=== PATIENT | female | born 1990 | race Caucasian/White ===

== ENCOUNTER 2020-02-28 00:36 | Inpatient (IN) ==
[2020-02-28] MEDS ORDERED: LACTATED RINGERS 1,000 ML IV STA (00:59)
[2020-02-28] MEDS ORDERED: DIPHTHERIA/TETANUS ADULT VACCINE 0.5 ML SYRINGE IM ONE (00:59)
[2020-02-28 01:55] LABS: Basophils % 0.1 % (0.0-0.8); Eosinophils % 0.1 % (0.00-10.9); Hematocrit 39.8 VOL% (35.7-47.0); Hemoglobin 13.9 GM/DL (12.0-16.0); Immature Granulocytes % 0.4 %; Immature Granulocytes Absolute 0.05 #; Lymphocytes # 0.7 10*3/uL (1.4-4.0); Lymphocytes % 5.1 % (21.3-54.2); Mean Corpuscular HGB Conc 34.9 GM/DL (32-36); Mean Platelet Volume 11.5 FL (9.6-12.0); Monocytes % 7.5 % (1.7-12.7); Neutrophils % 86.8 % (38.7-73.9); Platelet Count 102 T/CUMM (130-400); Red Blood Count 3.98 MC/CUMM (3.8-5.5); White Blood Count 13.6 T/CUMM (4-12)
[2020-02-28] MEDS ORDERED: MORPHINE 4 MG/1 ML VIAL IV STA (02:00)
[2020-02-28] MEDS ORDERED: ONDANSETRON 4 MG/2 ML VIAL IV STA (02:00)
[2020-02-28 02:09] LABS: Apearance,Urine CLEAR (Clear); Bacteria,Urine Occasional /HPF (Few); Bilirubin,Urine Negative (Negative); Blood, Urine Moderate mg/dL (Negative); Glucose,Urine (UA) Negative (Negative); Ketones,Urine Negative (Negative); Nitrite,Urine Negative (Negative); Protein,Urine Negative; Squamous Epithelial Cell,Urine Occasional /HPF (0-10); Urine Color Straw (Yellow); Urine Specific Gravity 1.003 (1.001-1.035); Urine Urobilinogen < 2.0 EU/DL (0.2-1.0); WBC,Urine 1 /HPF (0-6)
[2020-02-28] MEDS ORDERED: cefTRIAXone 1,000 MG in SODIUM CHLORIDE 0.9% 100 ML IV STA (02:24)
[2020-02-28 02:33] LABS: Alanine Aminotransferase 65 U/L (13-56); Albumin 3.7 G/DL (3.4-5.0); Alkaline Phosphatase 59 U/L (45-117); Aspartate Amino Transferase 53 U/L (0-37); Bilirubin,Total < 0.39 MG/DL (0.2-1.0); Blood Urea Nitrogen 9 MG/DL (7-18); Calcium 8.1 MG/DL (8.5-10.1); Estimated Glom Filtration Rate 87 ML/MIN; Glucose 106 MG/DL (74-106); Osmolality,Calculated 275.5 MOS/KG (273-304); Total Protein 6.6 G/DL (6.4-8.3)
[2020-02-28 02:36] LABS: Barbiturates Screen,Urine Negative (Negative); Benzodiazepines Screen,Urine Negative (Negative); Cannabinoid Screen,Urine Positive (Negative); Opiate Screen,Urine Negative (Negative); Phencyclidine Screen,Urine Negative (Negative)
[2020-02-28] MEDS ORDERED: ONDANSETRON 4 MG/2 ML VIAL IV PRN ×2 (03:07→10:29)
[2020-02-28 03:53] LABS: Band Neutrophils 1 % (0-10); Lymphocytes 4 % (20-55); Platelet Estimate Adequate; Segmented Neutrophils 87 % (50-85); Total Cells Counted 100
[2020-02-28] MEDS: DEXTROSE 5% NACL 0.45% 1,000 ML IV SCH ×3 (04:30→21:02)
[2020-02-28] MEDS: cefOXitin 2,000 MG in SYRINGE 1 EACH IV SCH ×4 (04:32→20:59)
[2020-02-28 05:57] LABS: Basophils % 0.2 % (0.0-0.8); Eosinophils % 0.1 % (0.00-10.9); Hematocrit 38.5 VOL% (35.7-47.0); Hemoglobin 13.6 GM/DL (12.0-16.0); Immature Granulocytes % 0.4 %; Immature Granulocytes Absolute 0.05 #; Mean Corpuscular HGB Conc 35.3 GM/DL (32-36); Mean Platelet Volume 11.3 FL (9.6-12.0); Monocytes % 7.7 % (1.7-12.7); Neutrophils % 83.6 % (38.7-73.9); Platelet Count 182 T/CUMM (130-400); Red Blood Count 3.97 MC/CUMM (3.8-5.5); White Blood Count 12.9 T/CUMM (4-12)
[2020-02-28 06:21] LABS: INR 1.1; PT Patient Result 11.5 SECS (9.8-11.9); Partial Thromboplastin Time 22.6 SECS (23.9-33.8)
[2020-02-28] MEDS: MORPHINE 4 MG/1 ML VIAL IV PRN ×2 (06:38→19:23)
[2020-02-28 06:55] LABS: Albumin 3.8 G/DL (3.4-5.0); Bilirubin,Total 1.8 MG/DL (0.2-1.0); Calcium 8.7 MG/DL (8.5-10.1); Osmolality,Calculated 279.3 MOS/KG (273-304); Total Protein 6.7 G/DL (6.4-8.3)
[2020-02-28] MEDS: PANTOPRAZOLE 40 MG VIAL IV SCH (09:01)
[2020-02-28] MEDS ORDERED: MEPERIDINE 25 MG/1 ML VIAL IV PRN (10:29)
[2020-02-28] MEDS ORDERED: PROMETHAZINE INJ 25 MG in SODIUM CHLORIDE 0.9% 50 ML IV PRN (10:29)
[2020-02-28] MEDS ORDERED: diphenhydrAMINE 50 MG/1 ML VIAL IV PRN (10:29)
[2020-02-28] MEDS ORDERED: MORPHINE 10 MG/1 ML VIAL ONE (10:48)
[2020-02-28] MEDS ORDERED: ceFAZolin 1,000 MG VIAL ONE (11:25)
[2020-02-28] MEDS ORDERED: MORPHINE 10 MG/1 ML VIAL IV PRN (11:59)
[2020-02-28] MEDS ORDERED: propofoL 200 MG/20 ML VIAL IV ONE (13:25)
[2020-02-28] MEDS ORDERED: SUCCINYLCHOLINE 200 MG/10 ML VIAL ONE (13:26)
[2020-02-28] MEDS ORDERED: ONDANSETRON 4 MG/2 ML VIAL ONE (13:26)
[2020-02-28] MEDS ORDERED: DESFLURANE 1 UNIT/15 MINUTE INH ONE (13:26)
[2020-02-28] MEDS ORDERED: fentaNYL 100 MCG/2 ML VIAL ONE (13:26)
[2020-02-28] MEDS ORDERED: GLYCOPYRROLATE 0.4 MG/2 ML VIAL ONE (13:26)
[2020-02-28] MEDS ORDERED: LIDOCAINE 2% 5 ML VIAL ONE (13:26)
[2020-02-28] MEDS ORDERED: ROCURONIUM 100 MG/10 ML VIAL IV ONE (13:26)
[2020-02-28] MEDS ORDERED: LACTATED RINGERS 1,000 ML IV ONE (13:26)
[2020-02-28] MEDS ORDERED: DEXAMETHASONE 4 MG/1 ML VIAL ONE (13:26)
[2020-02-28] MEDS ORDERED: NEOSTIGMINE 10 MG/10 ML VIAL ONE (13:26)
[2020-02-29] MEDS: cefOXitin 2,000 MG in SYRINGE 1 EACH IV SCH ×4 (03:18→21:08)
[2020-02-29] MEDS: DEXTROSE 5% NACL 0.45% 1,000 ML IV SCH (05:46)
[2020-02-29] MEDS: PANTOPRAZOLE 40 MG VIAL IV SCH (08:14)
[2020-02-29] MEDS: MORPHINE 4 MG/1 ML VIAL IV PRN ×4 (08:15→21:14)
[2020-03-01] MEDS: cefOXitin 2,000 MG in SYRINGE 1 EACH IV SCH ×4 (03:25→21:51)
[2020-03-01] MEDS: MORPHINE 4 MG/1 ML VIAL IV PRN ×3 (03:52→21:47)
[2020-03-01] MEDS: DEXTROSE 5% NACL 0.45% 1,000 ML IV SCH (07:17)
[2020-03-01] MEDS: PANTOPRAZOLE 40 MG VIAL IV SCH (10:18)
[2020-03-01] MEDS: BACITRACIN OINT 0.9 GM PACK TOP SCH ×2 (13:57→21:39)
[2020-03-02] MEDS: cefOXitin 2,000 MG in SYRINGE 1 EACH IV SCH ×2 (03:33→08:41)
[2020-03-02] MEDS: MORPHINE 4 MG/1 ML VIAL IV PRN ×2 (04:05→08:42)
[2020-03-02] MEDS: PANTOPRAZOLE 40 MG VIAL IV SCH (08:40)
[2020-03-02] MEDS: BACITRACIN OINT 0.9 GM PACK TOP SCH ×2 (08:42→22:17)
[2020-03-02] MEDS ORDERED: IBUPROFEN 400 MG TABLET PO PRN (11:41)
[2020-03-02] MEDS ORDERED: KETOROLAC 15 MG/1 ML VIAL IV PRN (11:42)
[2020-03-02] MEDS: HYDROmorphone 2 MG/1 ML VIAL IV PRN ×2 (15:00→22:08)
[2020-03-02] MEDS: DEXTROSE 5% NACL 0.45% 1,000 ML IV SCH ×2 (15:00→19:30)
[2020-03-03] MEDS: HYDROmorphone 2 MG/1 ML VIAL IV PRN (02:30)
[2020-03-03] MEDS: PANTOPRAZOLE 40 MG VIAL IV SCH (08:38)
[2020-03-03] MEDS: BACITRACIN OINT 0.9 GM PACK TOP SCH (08:39)
[2020-03-03] MEDS ORDERED: oxyCODONE/ACETAMINOPHEN 5-325 MG TABLET PO ONE (10:22)
[2020-03-03 12:00] VITALS: BP 130/64
== END 2020-03-03 14:56 | disposition home or self-care (01) | DRG 958 ==
LOC: EDBD → EDUNIT# → N.ED 00:36 → N.EDINP 00:36 → N.3E 14:43
PROVIDERS: ADMIT Surgery; ATTEND Surgery